=== PATIENT | male | born 1980 | race Caucasian/White ===

== ENCOUNTER 2017-01-07 13:57 | Emergency (ER) | payer BC, OTHER ==
[2017-01-07] MEDS ORDERED: Ketorolac INJ* 30 MG/ML 1 ML VIAL IV ONE (14:34)
[2017-01-07] MEDS: NS 0.9% 1000 ML* 2,000 ML IV ONE ×2 (14:56→17:08)
[2017-01-07 15:01] LABS: Hematocrit 40 % (42-52); Hemoglobin 13.9 g/dl (14.0-18.0); Mean Corpuscular HGB Conc 35 g/dl (31-36); Mean Corpuscular Hemoglobin 28 pg (27-31); Mean Corpuscular Volume 80 fL (80-94); Mean Platelet Volume 9 um3 (7.4-10.4); Red Blood Count 4.97 10^6/ul (4.0-5.4); Red Cell Distribution Width 13 % (10.5-15)
--- NOTE | 2017-01-07 15:04 | ED ---
GI/ HPI - HPI Summary HPI Summary: Patient presents with left sided flank pain for 2 days that has become severe today. He denies history of kidney stones, or recent trauma to the area. He has not noticed blood in his urine. He denies constipation, N/V/D, fever or chills. - History of Current Complaint Chief Complaint: EDFlankPain Time Seen by Provider: 01/07/17 14:24 Stated Complaint: RT SIDE FLANK PAIN/NAUSEA Hx Obtained From: Patient Onset/Duration: Started Days Ago - 2 Timing: Intermittent Severity: Moderate Current Severity: Severe Pain Intensity: 9 Location of Pain: Flank - left Pain Characteristics: Sharp, Colicy Associated Signs and Symptoms: Positive: Flank Pain. Negative: Fever, Dysuria - Allergy/Home Medications Allergies/Adverse Reactions: Allergies Allergy/AdvReac Type Severity Reaction Status Date / Time No Known Allergies Allergy Verified 07/31/12 13:30 PMH/Surg Hx/FS Hx/Imm Hx Previously Healthy: Yes Cardiovascular History: Denies: Hx Pacemaker/ICD Sensory History: Denies: Hx Hearing Aid Psychiatric History: Denies: Hx Panic Disorder Infectious Disease History: No Infectious Disease History: Denies: Traveled Outside the [place] in Last 30 Days - Family History Known Family History: Positive: None - Social History Occupation: Employed Full-time Lives: With Family Alcohol Use: Rare Substance Use Type: Reports: None Smoking Status (MU): Never Smoked Tobacco Review of Systems Negative: Fever Negative: Abdominal Pain Positive: flank pain - left. Negative: hematuria All Other Systems Reviewed And Are Negative: Yes Physical Exam Triage Information Reviewed: Yes Vital Signs On Initial Exam: Initial Vitals Temp Pulse Resp BP Pulse Ox 98.4 F 78 18 134/79 100 01/07/17 14:07 01/07/17 14:07 01/07/17 14:07 01/07/17 14:07 01/07/17 14:07 Vital Signs Reviewed: Yes Appearance: Positive: Well-Appearing, Well-Nourished, Pain Distress Skin: Positive: Warm, Skin Color Reflects Adequate Perfusion, Dry, Soft Head/Face: Positive: Normal Head/Face Inspection Eyes: Positive: EOMI, NIKKI, Conjunctiva Clear ENT: Positive: Hearing grossly normal Respiratory/Lung Sounds: Positive: Breath Sounds Present Cardiovascular: Positive: RRR Abdomen Description: Positive: Nontender, Soft, CVA Tenderness (L). Negative: CVA Tenderness (R), Distended, Guarding Bowel Sounds: Positive: Present Musculoskeletal: Negative: Edema Left Neurological: Positive: Sensory/Motor Intact, Alert, Oriented to Person Place, Time, NV Bundle Intact Distally Psychiatric: Positive: Affect/Mood Appropriate AVPU Assessment: Alert Diagnostics - Vital Signs Vital Signs Temp Pulse Resp BP Pulse Ox 01/07/17 14:07 98.4 F 78 18 134/79 100 - Laboratory Result Diagrams: 01/07/17 14:45 01/07/17 14:45 Lab Statement: Any lab studies that have been ordered have been reviewed, and results considered in the medical decision making process. - CT No standard instances CT Interpretation: Positive (See Comments) CT Interpretation Completed By: Radiologist - 1mm x 3mm non-obstructing calculi without hydronephrosis - Ultrasound No standard instances Ultrasound Interpretation: Positive (See Comments) Ultrasound Interpretation Completed By: Radiologist - mild left hydronephrosis without obstruction Re-Evaluation - Re-Evaluation First Eval Re-Evaluation Time: 15:30 Change: Improved Comment: pain decreased and patient is comfortable GIGU Course/Dx - Diagnoses Differential Diagnoses - Male: Diverticulitis, Cystitis, Irritable Bowel Syndrome, Pancreatitis, Renal Calculi, Renal Colic, Urinary Tract Infection Provider Diagnoses: Renal calculus, left Discharge - Discharge Plan Condition: Stable Disposition: HOME Patient Education Materials: Renal Colic (ED) Referrals: Richard Nugent MD [Medical Doctor] - Additional Instructions: You can begin using 600mg of ibuprofen three times daily with meals tomorrow around noon if your pain reoccurs. Drink extra fluids and call Dr. Nugent's office tomorrow for a follow-up appointment. Use the strainer for your urine and take any material to your follow-up appointment. Return to the emergency department if your symptoms worsen.
[2017-01-07 15:22] LABS: Albumin 4.4 g/dL (3.2-5.2); BUN/Creatinine Ratio 17.5 (8-20); Calcium 9.7 mg/dL (8.6-10.3); EGFR African American 111.4 (>60); EGFR Non-African American 86.6 (>60); Globulin 2.4 g/dL (2-4); Potassium 3.3 mmol/L (3.5-5.0); Total Bilirubin 0.4 mg/dL (0.2-1.0); Total Protein 6.8 g/dL (6.4-8.9)
--- NOTE | 2017-01-07 15:48 | RAD ---
INDICATION: Left flank pain. COMPARISON: There are no prior studies available for comparison. TECHNIQUE: Multiple real-time images of the left kidney were obtained. FINDINGS: The left kidney is normal in size shape and echogenicity. The kidney measured 12.4 x 5.6 x 4.4 cm. No significant focal renal abnormality is seen. There is mild dilatation of the left renal pelvis and calyces suggestive of mild hydronephrosis. Images of the urinary bladder demonstrate a normal left ureteral jet. Note is made of debris within the urinary bladder. IMPRESSION: MILD LEFT HYDRONEPHROSIS.
[2017-01-07 15:55] LABS: Urine Bacteria Absent (Absent); Urine Bilirubin Negative (Negative); Urine Glucose Negative (Negative); Urine Nitrite Negative (Negative)
--- NOTE | 2017-01-07 16:49 | RAD ---
INDICATION: Left flank abdominal pain. COMPARISON: Comparison is made with a left renal ultrasound study of the same day. TECHNIQUE: A CT scan of the abdomen and pelvis was performed without intravenous or oral contrast. Contiguous axial sections were obtained from the lung bases through the symphysis pubis. Images were reconstructed in the coronal and sagittal planes. FINDINGS: The lung bases are clear. No pleural effusion is present. The liver and spleen are within normal limits in size without significant focal abnormality on this noncontrast study. No calcified gallstones are seen. The pancreas appears to be within normal limits in size. The adrenal glands and kidneys are normal in size. There are couple punctate 1 mm nonobstructing calculi present in the upper pole of the left kidney. There is a linear 3 x 1 mm calcification which projects within the pelvis on the left side roughly in the distribution of the left ureter consistent with either a ureteral calculus or a phlebolith. There is mild distention of the left renal pelvis without gross evidence for hydronephrosis. No bladder calculi are seen. The aorta is normal in caliber with mild calcific plaque present. No significant enlarged retroperitoneal lymph nodes are seen. The stomach, small and large bowel appear nondistended. The appendix is not well visualized. There is no evidence for diverticulitis or colitis. There is a small right inguinal hernia containing fat. No free intraperitoneal air or fluid is seen. No significant focal osseous abnormality is seen. IMPRESSION: SMALL NONOBSTRUCTING LEFT RENAL CALCULI. IN ADDITION THERE IS A CALCIFICATION IN THE DISTRIBUTION OF THE DISTAL LEFT URETER CONSISTENT WITH EITHER A URETERAL CALCULUS OR A PHLEBOLITH.
[2017-01-07 17:32] VITALS: BP 121/62
== END 2017-01-07 17:39 | disposition home or self-care (01) ==
LOC: ED 13:57
DX: N20.0 Calculus of kidney (principal)
CPT/HCPCS: 36415; 74176; 76775; 80053; 81003; 81015; 85025; 99283; J1885